=== PATIENT | female | born 1975 | race African-American/Black ===

== ENCOUNTER 2016-06-03 11:37 | Emergency (ER) | payer SELFPAY ==
[2016-06-03 11:46] VITALS: BP 157/89; PULSE 86; TEMP 98.3; BMI 35.5
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
[2016-06-03] MEDS ORDERED: ACETAMINOPHEN 325 MG TABLET (FP) PO ONE (12:11)
[2016-06-03] MEDS ORDERED: ACETAMINOPHEN 325 MG TABLET (FP) ONE (12:18)
--- NOTE | 2016-06-05 08:22 | EKG ---
Test Reason : Blood Pressure : / mmHG Vent. Rate : 082 BPM Atrial Rate : 082 BPM P-R Int : 164 ms QRS Dur : 082 ms QT Int : 390 ms P-R-T Axes : 066 -38 030 degrees QTc Int : 455 ms NORMAL SINUS RHYTHM WITH SINUS ARRHYTHMIA LEFT AXIS DEVIATION ABNORMAL ECG NO PREVIOUS ECGS AVAILABLE Confirmed by LASHONDA WARE, CLAUDE ([id number]) on 06/05/2016 8:22:06 AM Referred By: Confirmed By:CLAUDE GALLEGO MD
== END 2016-06-03 14:39 | disposition home or self-care (01) ==
LOC: JER 11:37
DX: S20.219A Contusion of unspecified front wall of thorax, initial encounter (principal); S00.83XA Contusion of other part of head, initial encounter; Y04.2XXA Assault by strike against or bumped into by another person, initial encounter; Y92.89 Other specified places as the place of occurrence of the external cause; Y07.03 Male partner, perpetrator of maltreatment and neglect
CPT/HCPCS: 71020-TC; 73030-TC-LT; 93005; 93010; 99283-25

== ENCOUNTER 2016-06-12 20:22 | Emergency (ER) | payer SELFPAY ==
[2016-06-12 20:53] VITALS: BP 123/90; PULSE 82; TEMP 97.8; BMI 35.3
[2016-06-12] MEDS ORDERED: KETOROLAC TROMETHAMINE 30 MG/1 ML VIAL IVPUSH ONE (22:10)
[2016-06-12] MEDS ORDERED: KETOROLAC TROMETHAMINE 30 MG/1 ML VIAL ONE (22:25)
[2016-06-12 22:26] LABS: MCH 32.7 pg (25.7-33.7); MCHC 34.1 g/dl (32.0-36.0); MEAN CELL VOLUME 95.8 fl (80-96); RDW 12.5 % (11.6-15.6); WHITE BLOOD COUNT 6.6 K/mm3 (4.0-10.0)
--- NOTE | 2016-06-12 22:32 | PDOC ---
History of Present Illness - General History Source: Patient Exam Limitations: No Limitations <Jp Carrion - Last Filed: 06/13/16 00:43> - General History Source: Patient, Old Records Exam Limitations: No Limitations - History of Present Illness Initial Comments: 06/13/16 00:54 The patient is a 41 year old female, with a significant past medical history of lupus (not currently on any medications), who presents to the emergency department with nonradiating reproducible chest pain since this morning. The patient first noticed this pain after she woke up this morning. She reports that the chest pain is somewhat relieved with massage and rest. The patient is additionally endorsing some mild shortness of breath. The patient denies diaphoresis or palpitations. The patient denies nausea or vomiting. The patient denies a history of blood clots. The patient denies a past or family history of cardiac disease. The patient denies injury or trauma. The patient's boyfriend is at the bedside. Allergies: Shellfish derived. Past Surgical History: Tubal Ligation Social History: Non smoker. Denies alcohol or drug use. <Kanwal Atkinson - Last Filed: 06/13/16 00:55> - General Chief Complaint: Chest Pain Stated Complaint: CHEST PAIN Time Seen by Provider: 06/12/16 21:28 Past History - Past Medical History Other medical history: lupus - Reproductive History (#): 4 Para: 3 Therapeutic (s) & number: No Spontaneous : 0 - Psycho/Social/Smoking Cessation Hx Suicidal Ideation: No Smoking History: Never smoked Have you smoked in the past 12 months: No Hx Alcohol Use: No Drug/Substance Use Hx: No Substance Use Type: None <Jp Carrion - Last Filed: 06/13/16 00:43> <Kanwal Atkinson - Last Filed: 06/13/16 00:55> - Past Medical History Allergies/Adverse Reactions: Allergies Allergy/AdvReac Type Severity Reaction Status Date / Time shellfish derived Allergy Intermediate Swelling Verified 06/12/16 20:48 Home Medications: Ambulatory Orders Acetaminophen [Tylenol] 650 mg PO Q4H PRN #20 tablet 06/13/16 Naproxen [Naprosyn -] 500 mg PO BID PRN #20 tablet 06/13/16 Review of Systems - Review of Systems Able to Perform ROS?: Yes Comments:: 06/12/16 22:36 GENERAL/CONSTITUTIONAL: No fever or chills. No weakness. HEAD, EYES, EARS, NOSE AND THROAT: No change in vision. No ear pain or discharge. No sore throat. CARDIOVASCULAR: +Chest pain, shortness of breath. RESPIRATORY: No cough, wheezing, or hemoptysis. GASTROINTESTINAL: No nausea, vomiting, diarrhea or constipation. GENITOURINARY: No dysuria, frequency, or change in urination. MUSCULOSKELETAL: No joint or muscle swelling or pain. No neck or back pain. SKIN: No rash. NEUROLOGIC: No headache, vertigo, loss of consciousness, or change in strength/ sensation. ENDOCRINE: No increased thirst. No abnormal weight change. HEMATOLOGIC/LYMPHATIC: No anemia, easy bleeding, or history of blood clots. ALLERGIC/IMMUNOLOGIC: No hives or skin allergy. <Kanwal Atkinson - Last Filed: 06/13/16 00:55> *Physical Exam - Vital Signs Last Vital Signs Temp Pulse Resp BP Pulse Ox 97.8 F 82 18 123/90 99 06/12/16 20:51 06/12/16 20:51 06/12/16 20:51 06/12/16 20:51 06/12/16 20:51 <Jp Carrion - Last Filed: 06/13/16 00:43> - Vital Signs Last Vital Signs Temp Pulse Resp BP Pulse Ox 97.8 F 82 18 123/90 99 06/12/16 20:51 06/12/16 20:51 06/12/16 20:51 06/12/16 20:51 06/12/16 20:51 - Physical Exam Comments: 06/12/16 22:38 GENERAL: Awake, alert, and fully oriented, in no acute distress. HEAD: No signs of trauma. EYES: PERRLA, EOMI, sclera anicteric, conjunctiva clear. ENT: Auricles normal inspection, hearing grossly normal, nares patent, oropharynx clear without exudates. Moist mucosa. NECK: Normal ROM, supple, no lymphadenopathy, JVD, or masses. LUNGS: Breath sounds equal, clear to auscultation bilaterally. No wheezes, and no crackles. HEART: Regular rate and rhythm, normal S1 and S2, no murmurs, rubs or gallops. ABDOMEN: Soft, nontender, normoactive bowel sounds. No guarding, no rebound. No masses. MUSCULOSKELETAL: Reproducible left upper chest tenderness to palpation along the pec major. EXTREMITIES: Normal range of motion, no edema. No clubbing or cyanosis. No cords , erythema, or tenderness. NEUROLOGICAL: Cranial nerves II through XII intact. Normal speech, normal gait. SKIN: Warm, dry, normal turgor, no rashes or lesions noted. <Kanwal Atkinson - Last Filed: 06/13/16 00:55> Heart Score/ECG Review - History History: Slightly suspicious - Electrocardiogram EKG: Non specific repolarization disturbance - Age Age: </= 45 - Risk Factors Based on the list above the patient has:: 1-2 risk factors - Troponin Troponin: </= normal limit - Score Heart Score - Total: 2 #1 ECG reviewed & interpreted by me at: 20:40 06/12/16 22:11 NSR 73, LAFB, no std/samia, left axis, QTC 440 msec <Jp Carrion - Last Filed: 06/13/16 00:43> ED Treatment Course - LABORATORY CBC & Chemistry Diagram: 06/12/16 22:15 06/12/16 22:15 - RADIOLOGY Radiology Studies Ordered: Category Date Time Status CHEST X-RAY PORTABLE* [RAD] Stat Radiology 06/12/16 21:49 Ordered <Jp Carrion - Last Filed: 06/13/16 00:43> - LABORATORY CBC & Chemistry Diagram: 06/12/16 22:15 06/12/16 22:15 - Medications Given in the ED: ED Medications Discontinued Medications Generic Name Dose Route Start Last Admin Trade Name Freq PRN Reason Stop Dose Admin Ketorolac Tromethamine 30 mg 06/12/16 22:10 06/12/16 22:31 Toradol Injection - IVPUSH 06/12/16 22:11 30 mg ONCE ONE Administration <Kanwal Atkinson - Last Filed: 06/13/16 00:55> Medical Decision Making - Medical Decision Making 06/12/16 22:12 A portion of this note was documented by scribe services under my direction. I have reviewed the details of the note, within reason, and agree with the documentation with the following case summary and management plan written by me. Patient treated in the ED. Nursing notes are reviewed and incorporated into the medical decision-making. Vital signs reviewed. Peripheral IV access obtained by the nurse, laboratory studies are drawn and sent, reviewed and interpreted by myself. Vital Signs Temp Pulse Resp BP Pulse Ox 97.8 F 82 18 123/90 99 06/12/16 20:51 06/12/16 20:51 06/12/16 20:51 06/12/16 20:51 06/12/16 20:51 41-year-old female with history of lupus presents to the emergency department for reproducible chest pain. Patient was working all night as a supervisor laundry. Woke up this morning and noted that she was having pain reproducible palpation improved with massage and rest. She free reports that it is pleuritic and feels somewhat short of breath secondary to pain. She denies midsternal chest pain. Denies history of blood clots. I have low suspicion your acute coronary syndrome or pulmonary embolism or pericarditis this time. The patient's physical exam appears remarkably like muscle skeletal. We'll send blood work, chest x-ray and trial Toradol. Workup is negative, and the patient reports feeling better, I feel comfortable sending the patient home. 06/13/16 00:37 Chest xray reviewed by me, pending official radiology read. No acute findings. CBC, BMP 06/12/16 22:15 06/12/16 22:15 CMP Sodium 140 mmol/L (136-145) 06/12/16 22:15 Potassium 4.1 mmol/L (3.5-5.1) 06/12/16 22:15 Chloride 105 mmol/L (98-107) 06/12/16 22:15 Carbon Dioxide 27 mmol/L (21-32) 06/12/16 22:15 Anion Gap 8 (8-16) 06/12/16 22:15 BUN 10 mg/dL (7-18) 06/12/16 22:15 Creatinine 0.7 mg/dL (0.55-1.02) 06/12/16 22:15 Creat Clearance w eGFR > 60 (>60) 06/12/16 22:15 Random Glucose 86 mg/dL (74-106) 06/12/16 22:15 Calcium 8.8 mg/dL (8.5-10.1) 06/12/16 22:15 Total Bilirubin 0.4 mg/dL (0.2-1.0) 06/12/16 22:15 AST 15 U/L (15-37) 06/12/16 22:15 ALT 24 U/L (12-78) 06/12/16 22:15 Alkaline Phosphatase 66 U/L (45-117) 06/12/16 22:15 Creatine Kinase 89 IU/L (26-192) 06/12/16 22:15 Troponin I < 0.02 ng/ml (0.00-0.05) 06/12/16 22:15 Total Protein 7.1 g/dl (6.4-8.2) 06/12/16 22:15 Albumin 3.6 g/dl (3.4-5.0) 06/12/16 22:15 Serum , Qual Negative 06/12/16 22:15 The patient reports feeling better with Toradol and Tylenol. Again, I suspicion that this is muscle skeletal. I will give patient follow-up with a plywood stock grader given her left anterior fascicular block and follow-up with a general practitioner. Return precautions given including worsening chest pain. I discussed the physical exam findings, ancillary test results and final diagnoses with the patient. I answered all of the patient's questions. The patient was satisfied with the care received and felt comfortable with the discharge plan and treatment plan. The patient will call their primary care physician within 24 hours to arrange follow-up and will return to the Emergency Department with any new, persistant or worsening symptoms. <Jp Carrion - Last Filed: 06/13/16 00:43> *DC/Admit/Observation/Transfer - Discharge Dispostion Admit: No <Jp Carrion - Last Filed: 06/13/16 00:43> - Attestations Scribe Attestion: 06/12/16 22:36 Documentation prepared by Kanwal Atkinson, acting as medical lab director for Jp Carrion MD. <Kanwal Atkinson - Last Filed: 06/13/16 00:55> Diagnosis at time of Disposition: Atypical chest pain - Discharge Dispostion Disposition: HOME Condition at time of disposition: Improved - Prescriptions Prescriptions: Naproxen [Naprosyn -] 500 mg PO BID PRN #20 tablet PRN Reason: Chest Pain Acetaminophen [Tylenol] 650 mg PO Q4H PRN #20 tablet PRN Reason: Pain - Referrals Referrals: Diann Murillo MD [Staff Physician] - Rudi Tovar MD [Staff Physician] - Por Mehta MD [Staff Physician] - Opal Maya MD [Staff Physician] - Henri Maloney MD [Staff Physician] - Toni Hernandes MD [Staff Physician] - - Patient Instructions Printed Discharge Instructions: DI for Atypical Chest Pain Additional Instructions: You have been given a copy of blood work and EKG. At this time, I suspect that this is likely muscle skeletal. However, given history of lupus, it is important to observe chest pain. If you have uncontrollable chest pain or difficulty breathing, please return to the ER for further evaluation. Otherwise , please make an appointment with the doctor including a plywood stock grader.
[2016-06-12 22:39] LABS: INR 1.01 (0.82-1.09); PROTHROMBIN TIME (PATIENT) 11.1 SEC (9.98-11.88)
[2016-06-12 22:41] LABS: ACTIVATED PTT 32.6 SECONDS (26.9-34.4)
[2016-06-12 22:58] LABS: ALBUMIN 3.6 g/dl (3.4-5.0); ANION GAP 8 (8-16); CALCIUM 8.8 mg/dL (8.5-10.1); CO2 27 mmol/L (21-32); CREATININE 0.7 mg/dL (0.55-1.02); GLUCOSE,RANDOM 86 mg/dL (74-106); SGOT/AST 15 U/L (15-37); SGPT/ALT 24 U/L (12-78)
[2016-06-12 22:59] LABS: PLATELET COUNT 258 K/MM3 (134-434)
[2016-06-12 23:00] LABS: PLATELET COMMENT2 FEW GIANT PLTS; PLATELET ESTIMATE ADEQUATE (NORMAL)
[2016-06-12 23:02] LABS: ALK PHOS 66 U/L (45-117); BILIRUBIN,TOTAL 0.4 mg/dL (0.2-1.0); TOT PROT 7.1 g/dl (6.4-8.2); TROPONIN I < 0.02 ng/ml (0.00-0.05)
[2016-06-12] MEDS ORDERED: ACETAMINOPHEN 1000 MG/100 ML VIAL (NON FORMULARY) IVPB ONE (23:24)
[2016-06-12] MEDS ORDERED: ACETAMINOPHEN INJECTION 100 ML IVPB ONE (23:49)
--- NOTE | 2016-06-13 17:29 | EKG ---
Test Reason : Blood Pressure : / mmHG Vent. Rate : 073 BPM Atrial Rate : 073 BPM P-R Int : 164 ms QRS Dur : 080 ms QT Int : 400 ms P-R-T Axes : 048 -59 025 degrees QTc Int : 440 ms POOR DATA QUALITY, INTERPRETATION MAY BE ADVERSELY AFFECTED NORMAL SINUS RHYTHM LEFT ANTERIOR FASCICULAR BLOCK ABNORMAL ECG WHEN COMPARED WITH ECG OF 03-JUN-2016 11:43, NO SIGNIFICANT CHANGE WAS FOUND Confirmed by SHELLY HURTADO MD ([id number]) on 06/13/2016 5:29:02 PM Referred By: Confirmed By:SHELLY HURTADO MD
== END 2016-06-13 01:10 | disposition home or self-care (01) ==
LOC: JER 20:22
PROC: 3E033NZ Introduction of Analgesics, Hypnotics, Sedatives into Peripheral Vein, Percutaneous Approach (ICD-10-PCS; principal; 2016-06-12)
PROC: 3E0333Z Introduction of Anti-inflammatory into Peripheral Vein, Percutaneous Approach (ICD-10-PCS; 2016-06-12)
DX: R07.89 Other chest pain (principal); M32.9 Systemic lupus erythematosus, unspecified
CPT/HCPCS: 36415; 71010-TC; 80053; 82550; 84484; 84703; 85025; 85610; 85730; 93005; 93010; 99284-25

== ENCOUNTER 2017-06-23 06:30 | Emergency (ER) | payer SELFPAY ==
--- NOTE | 2017-06-23 06:48 | PDOC ---
Heart Score/ECG Review - History History: Slightly suspicious - Electrocardiogram EKG: Normal - Age Age: </= 45 <Sallie Villaseñor - Last Filed: 06/23/17 06:47> - ECG Impressions Normal ECG: Yes Comment:: 06/23/17 06:48 Vent. rate: 62 bpm TN interval: 154 ms QRS duration: 84 ms Normal sinus rhythm <Jessica Fonseca - Last Filed: 06/23/17 06:50>
[2017-06-23 06:49] VITALS: BP 139/88; PULSE 67; TEMP 97.7; BMI 38.4
[2017-06-23] MEDS ORDERED: SODIUM CHLORIDE 1,000 ML IV STA (07:15)
[2017-06-23] MEDS ORDERED: ACETAMINOPHEN 500 MG TABLET (FP) PO ONE (07:16)
--- NOTE | 2017-06-23 07:18 | PDOC ---
Attending Attestation - HPI HPI: 06/23/17 09:47 The patient is a 42 year old female with a significant PMH of lupus who presents to the emergency department with left sided chest pain since earlier this morning. The patient reports an onset of chest pain at 2am this morning while she was laying in bed. She reports a similar episode 2 week ago. She reports associated pain in her arm with movement. The patient denies any shortness of breath, headache and dizziness. She denies any fever, chills, nausea, vomit, diarrhea and constipation. The patient denies any urinary symptoms. The patient denies any other complaints. Documentation prepared by Trace Amor, acting as medical technologist generalist for Manpreet Dos Santos MD. - Physicial Exam PE: 06/23/17 09:47 Vitals: Triage vital signs reviewed General Appearance: No acute distress, well nourished, well developed Head: Atraumatic Eyes: Pupils equal reactive round, extraocular movement intact Neck: Supple; No nuchal rigidity Chest Wall: Nontender Cardiac: Regular rate and rhythm, no murmurs, no rubs, no gallops Lungs: Clear to auscultation bilateral, good air movement bilaterally Abdomen: Soft, nondistended, normal bowel sounds, nontender to palpation Genitourinary: Rectal: Exam deferred Extremities: Full range of motion to all extremities, no cyanosis, clubbing, or edema Skin: Warm and dry, no rashes or lesions, no rash, no petechiae <Trace Amor - Last Filed: 06/23/17 09:47> - Resident Resident Name: Aj Galindo - ED Attending Attestation I have performed the following: I have examined & evaluated the patient, The case was reviewed & discussed with the resident, I agree w/resident's findings & plan, Exceptions are as noted - Medical Decision Making 06/23/17 12:06 42 years old past medical history significant for lupus not being treated. Presents to the ED with atypical positional chest discomfort. Nonexertional nonpleuritic no PE DVT risk factors. Negative by perc criteria. No diaphoresis no vomiting or nausea. Heart score 1. Nonischemic EKG Troponin negative 2. Patient low risk that this discomfort which started last night represents ACS Patient advised follow-up with the primary care provider she was advised return to ED for any severe worsening symptoms or for any concerns Findings, need for follow-up and strict return instructions discussed with patient. 06/23/17 13:14 <Manpreet Dos Santos - Last Filed: 06/23/17 13:15> Discharge Disposition <Trace Amor - Last Filed: 06/23/17 09:47> <Manpreet Dos Santos - Last Filed: 06/23/17 13:15> - Diagnosis Atypical chest pain - Discharge Dispostion Disposition: HOME Condition at time of disposition: Stable - Referrals Referrals: [facility] [Provider Group] Radha Burger MD [Staff Physician] - - Patient Instructions Printed Discharge Instructions: DI for Atypical Chest Pain Additional Instructions: Please return if you have any new, worsening or concerning symptoms. Please follow up with a primary care physician, a referral for a primary care physician has been included in your paperwork. - Post Discharge Activity Work/School Note: Back to Work Heart Score/ECG Review - ECG Impressions Comment:: 06/23/17 08:02 EKG performed at 6:38 AM. Demonstrates normal sinus rhythm 60 bpm. IL interval 154. QRS 84. QTC 4:30. No ST elevations no T-wave inversions Interpreted by me. <Manpreet Dos Santos - Last Filed: 06/23/17 13:15>
--- NOTE | 2017-06-23 07:26 | PDOC ---
History of Present Illness - General Chief Complaint: Chest Pain Stated Complaint: CHEST DISCOMFORT Time Seen by Provider: 06/23/17 06:57 History Source: Patient Exam Limitations: No Limitations - History of Present Illness Initial Comments: 06/23/17 07:19 Patient is a 42F with history of lupus here today complaining of chest pain starting at rest at 2am. Patient states that her chest pain is located to the lateral left side of her sternum with associated parathesias in left arm. Denies fevers, chills, nausea, vomiting. Denies history of blood clots, leg swelling and recent travel. Denies taking any medication. Pain is worsened with arm movement and loading pectoralis major. 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 Patient reports seeing a cosmetic consultant, but was not diagnosed with any condition. Past History - Past Medical History Allergies/Adverse Reactions: Allergies Allergy/AdvReac Type Severity Reaction Status Date / Time shellfish derived Allergy Intermediate Swelling Verified 06/23/17 06:45 Home Medications: Ambulatory Orders NK [No Known Home Medication] 06/23/17 COPD: No Other medical history: lupus - Reproductive History (#): 4 Para: 3 Therapeutic (s) & number: No Spontaneous : 0 - Suicide/Smoking/Psychosocial Hx Smoking History: Never smoked Have you smoked in the past 12 months: No Information on smoking cessation initiated: No Hx Alcohol Use: No Drug/Substance Use Hx: No Substance Use Type: None Review of Systems - Review of Systems Able to Perform ROS?: Yes Comments:: 06/23/17 07:26 GENERAL/CONSTITUTIONAL: No fever or chills. No weakness. HEAD, EYES, EARS, NOSE AND THROAT: No change in vision. No sore throat. CARDIOVASCULAR: Positive for chest pain. Negative for shortness of breath RESPIRATORY: No cough, wheezing, or hemoptysis. GASTROINTESTINAL: No nausea, vomiting, diarrhea or constipation. GENITOURINARY: No dysuria, frequency, or change in urination. MUSCULOSKELETAL: No joint or muscle swelling or pain. No neck or back pain. SKIN: No rash NEUROLOGIC: No headache, vertigo, loss of consciousness, or change in strength/ sensation. HEMATOLOGIC/LYMPHATIC: No anemia, easy bleeding, or history of blood clots. ALLERGIC/IMMUNOLOGIC: No hives or skin allergy. *Physical Exam - Vital Signs Last Vital Signs Temp Pulse Resp BP Pulse Ox 97.7 F 67 18 139/88 99 06/23/17 06:45 06/23/17 06:45 06/23/17 06:45 06/23/17 06:45 06/23/17 06:45 - Physical Exam Comments: 06/23/17 07:27 GENERAL: Awake, alert, and fully oriented, in no acute distress HEAD: No signs of trauma, normocephalic, atraumatic EYES: PERRLA, EOMI, sclera anicteric, conjunctiva clear ENT: Auricles normal inspection, hearing grossly normal, nares patent, oropharynx clear without exudates. Dry mucosa NECK: Normal ROM, supple, no lymphadenopathy, JVD, or masses LUNGS: No distress, speaks full sentences, clear to auscultation bilaterally HEART: Regular rate and rhythm, normal S1 and S2, no murmurs, rubs or gallops, peripheral pulses normal and equal bilaterally. CHEST: Tender to palpation on left pectoralis major, reports pain with loading of chest wall muscles ABDOMEN: Soft, nontender, normoactive bowel sounds. No guarding, no rebound. No masses EXTREMITIES: Normal inspection, Normal range of motion, no edema. No clubbing or cyanosis. NEUROLOGICAL: Cranial nerves II through XII grossly intact. Normal speech, no focal sensorimotor deficits SKIN: Warm, Dry, normal turgor, no rashes or lesions noted. Heart Score/ECG Review - History History: Slightly suspicious - Electrocardiogram EKG: Normal - Age Age: </= 45 - Risk Factors Risk Factors Heart Score: Yes Hx Obesity Based on the list above the patient has:: 1-2 risk factors - Troponin Troponin: </= normal limit - Score Heart Score - Total: 1 ED Treatment Course - LABORATORY CBC & Chemistry Diagram: 06/23/17 08:25 06/23/17 08:25 - RADIOLOGY Radiology Studies Ordered: Category Date Time Status CXRPORT [CHEST X-RAY PORTABLE*] [RAD] Stat Radiology 06/23/17 07:16 Ordered Medical Decision Making - Medical Decision Making 06/23/17 07:28 Patient is 42F with history of lupus here today complaining of chest pain. Vital signs stable. PERC negative. Chest pain reproducible. Patient appears dry. EKG shows normal sinus rhythm with 62bpm. Left anterior fascicular block pattern , stable to prior ekg from [address] elevations/depressions. No significant t wave abnormalities. Normal VT/QRS/QTc intervals. Suspect patient has msk pain, will treat with tylenol and fluids as patient has already taken aspirin at home. Will evaluate further with cbc, cmp, trop, cxr, pt/inr, serum preg. Will discharge after one trop if negative. 06/23/17 09:48 CBC, CMP reassuring. Troponin undetectable. CXR shows no acute cardiopulmonary process. Patient reassessed, states that she feels better. I believe pain is most likely msk in origin, will discharge with instructions to follow up with PCP. All questions answered. Return precautions given. *DC/Admit/Observation/Transfer Diagnosis at time of Disposition: Atypical chest pain - Discharge Dispostion Disposition: HOME Condition at time of disposition: Stable Decision to Admit order: No - Referrals Referrals: [facility] – [place] [facility] [place] [Provider Group] Radha Burger MD [Staff Physician] - - Patient Instructions Printed Discharge Instructions: DI for Atypical Chest Pain Additional Instructions: Please return if you have any new, worsening or concerning symptoms. Please follow up with a primary care physician, a referral for a primary care physician has been included in your paperwork. - Post Discharge Activity Forms/Work/School Notes: Back to Work
[2017-06-23 08:31] LABS: BASO % 1.6 % (0-2.0); EOS % 1.7 % (0-4.5); HEMATOCRIT 37.5 % (32.4-45.2); HEMOGLOBIN 13.1 GM/dL (10.7-15.3); LYMPH % 33.2 % (8-40); MCH 33.6 pg (25.7-33.7); MEAN CELL VOLUME 96.2 fl (80-96); MEAN PLT VOLUME 9.8 fl (7.5-11.1); NEUT % 55.5 % (42.8-82.8); PLATELET COUNT 294 K/MM3 (134-434); WHITE BLOOD COUNT 7.1 K/mm3 (4.0-10.0)
[2017-06-23] MEDS ORDERED: ACETAMINOPHEN 325 MG TABLET (FP) ONE ×2 (08:37→08:42)
[2017-06-23 08:51] LABS: INR 1.01 (0.82-1.09); PROTHROMBIN TIME (PATIENT) 11.4 SEC (9.7-13.0)
[2017-06-23 09:03] LABS: ALBUMIN 3.6 g/dl (3.4-5.0); ANION GAP 7 (8-16); BILIRUBIN,TOTAL 0.6 mg/dL (0.2-1.0); BLOOD UREA NITROGEN 12 mg/dL (7-18); CALCIUM 8.3 mg/dL (8.5-10.1); CHLORIDE 108 mmol/L (98-107); CO2 24 mmol/L (21-32); CREATININE 0.8 mg/dL (0.55-1.02); GLUCOSE,RANDOM 82 mg/dL (74-106); POTASSIUM 4.5 mmol/L (3.5-5.1); SGOT/AST 19 U/L (15-37); SGPT/ALT 20 U/L (12-78); SODIUM 139 mmol/L (136-145); TOT PROT 7.2 g/dl (6.4-8.2)
[2017-06-23 09:06] LABS: ALK PHOS 62 U/L (45-117)
--- NOTE | 2017-06-23 10:51 | EKG ---
Test Reason : Blood Pressure : / mmHG Vent. Rate : 062 BPM Atrial Rate : 062 BPM P-R Int : 154 ms QRS Dur : 084 ms QT Int : 424 ms P-R-T Axes : 044 -46 037 degrees QTc Int : 430 ms NORMAL SINUS RHYTHM LEFT ANTERIOR FASCICULAR BLOCK ABNORMAL ECG WHEN COMPARED WITH ECG OF 12-JUN-2016 20:40, NO SIGNIFICANT CHANGE WAS FOUND Confirmed by CLAUDE GALLEGO MD ([id number]) on 06/23/2017 10:50:44 AM Referred By: Confirmed By:CLAUDE GALLEGO MD
== END 2017-06-23 10:43 | disposition home or self-care (01) ==
LOC: JER 06:30
PROC: 3E0337Z Introduction of Electrolytic and Water Balance Substance into Peripheral Vein, Percutaneous Approach (ICD-10-PCS; principal; 2017-06-23)
DX: R07.89 Other chest pain (principal)
CPT/HCPCS: 36415; 71045-TC-FY; 80053; 82550; 83735; 84484; 84703; 85025; 85610; 93005; 93010; 99283-25; J7030

== ENCOUNTER 2017-06-29 16:06 | Emergency (ER) | payer SELFPAY ==
[2017-06-29 16:11] VITALS: BP 143/83; PULSE 103; TEMP 98.4; BMI 38.4
--- NOTE | 2017-06-29 17:02 | PDOC ---
History of Present Illness - General Chief Complaint: Sore Throat Stated Complaint: SORE THROAT Time Seen by Provider: 06/29/17 16:43 History Source: Patient - History of Present Illness Associated Symptoms: reports: earache, sore throat. denies: cough, fever/chills , muscle aches Past History - Past Medical History Allergies/Adverse Reactions: Allergies Allergy/AdvReac Type Severity Reaction Status Date / Time shellfish derived Allergy Intermediate Swelling Verified 06/29/17 16:11 Home Medications: Ambulatory Orders NK [No Known Home Medication] 06/23/17 COPD: No Other medical history: lupus - Reproductive History (#): 4 Para: 3 Therapeutic (s) & number: No Spontaneous : 0 - Suicide/Smoking/Psychosocial Hx Smoking History: Never smoked Have you smoked in the past 12 months: No Hx Alcohol Use: No Drug/Substance Use Hx: No Substance Use Type: None Review of Systems - Review of Systems Constitutional: No: Chills, Fever HEENTM: Yes: Ear Pain, Throat Pain Respiratory: No: Cough *Physical Exam - Vital Signs Last Vital Signs Temp Pulse Resp BP Pulse Ox 98.4 F 103 H 20 143/83 99 06/29/17 16:09 06/29/17 16:09 06/29/17 16:09 06/29/17 16:09 06/29/17 16:09 - Physical Exam General Appearance: Yes: Appropriately Dressed. No: Apparent Distress HEENT: positive: Normal ENT Inspection, Normal Voice, Pharynx Normal. negative : Scleral Icterus (R), Scleral Icterus (L) Neck: positive: Supple. negative: Lymphadenopathy (R), Lymphadenopathy (L) Respiratory/Chest: negative: Respiratory Distress Integumentary: positive: Dry, Warm Neurologic: positive: Fully Oriented, Alert, Normal Mood/Affect Medical Decision Making - Medical Decision Making 06/29/17 17:01 42-year-old female, history of lupus, not on medication, here with sore throat with bilateral ear pain 3 days. Taken Motrin with no relief. No cough, fever or chills. Patient denies any sick contacts or recent travel. Patient well- appearing and stable with unremarkable exam. Most likely viral. Rule out strep 06/29/17 17:35 Rapid strep neg. Pt discharged to take OTC meds *DC/Admit/Observation/Transfer Diagnosis at time of Disposition: Pharyngitis Qualifiers: Pharyngitis/tonsillitis etiology: unspecified etiology Qualified Code(s): J02.9 - Acute pharyngitis, unspecified - Discharge Dispostion Disposition: HOME Condition at time of disposition: Good - Referrals - Patient Instructions Printed Discharge Instructions: DI for Viral Pharyngitis Additional Instructions: Your rapid strep test was negative in ER. We did send off a confirmatory test, which will take 2-3 days to return. In the meantime, continue 800 mg of Motrin or 650 mg Tylenol every 6 hours - Post Discharge Activity
== END 2017-06-29 17:55 | disposition home or self-care (01) ==
LOC: JERFT 16:06
DX: J02.9 Acute pharyngitis, unspecified (principal)
CPT/HCPCS: 87070; 87430; 99281-25

== ENCOUNTER 2017-12-02 11:50 | Emergency (ER) | payer OTHER ==
[2017-12-02 12:14] VITALS: BP 127/80; PULSE 92; TEMP 98; BMI 33.2
--- NOTE | 2017-12-02 12:45 | PDOC ---
History of Present Illness - General Chief Complaint: Revisit,Wound Recheck Stated Complaint: WOUND,SUTURED ELSEWHERE Time Seen by Provider: 12/02/17 12:39 - History of Present Illness Initial Comments: 42-year-old female presents for evaluation and wound check. Sutures were placed in the left knee and about 10 days after placement she states they became unraveled and started to come out and she remove them herself. She's had no adverse events since removal of the sutures. 12/02/17 12:42 Past History - Past Medical History Allergies/Adverse Reactions: Allergies Allergy/AdvReac Type Severity Reaction Status Date / Time shellfish derived Allergy Intermediate Swelling Verified 12/02/17 12:11 Home Medications: Ambulatory Orders NK [No Known Home Medication] 06/23/17 COPD: No - Reproductive History (#): 4 Para: 3 Therapeutic (s) & number: No Spontaneous : 0 - Suicide/Smoking/Psychosocial Hx Smoking History: Never smoked Have you smoked in the past 12 months: No Hx Alcohol Use: No Drug/Substance Use Hx: No Substance Use Type: None Review of Systems - Review of Systems All Other Systems: Reviewed and Negative *Physical Exam - Vital Signs Last Vital Signs Temp Pulse Resp BP Pulse Ox 98.0 F 92 H 20 127/80 97 12/02/17 12:11 12/02/17 12:11 12/02/17 12:11 12/02/17 12:11 12/02/17 12:11 - Physical Exam Comments: There is a well-healed oblique scar on the anterior aspect of the left knee with normal surrounding skin color and temperature slightly sensitive which is appropriate. Range of motion is full. Wound is well-healed 12/02/17 12:42 *DC/Admit/Observation/Transfer Diagnosis at time of Disposition: Visit for wound check - Discharge Dispostion Disposition: HOME Condition at time of disposition: Stable Decision to Admit order: No - Referrals Referrals: Damari Ramirez MD [Primary Care Provider] - - Patient Instructions Additional Instructions: Return to the emergency room should he have any issues. Please apply some block to the area of the wound when it exposed to sun. He may use vitamin D ointment to cross friction scar massage as discussed. Keep the area clean with soap and water and left open to air. Does not need to be covered. - Post Discharge Activity
== END 2017-12-02 12:53 | disposition home or self-care (01) ==
LOC: JERFT 11:50
DX: Z51.89 Encounter for other specified aftercare (principal)
CPT/HCPCS: 99281-25

== ENCOUNTER 2017-12-28 13:46 | Emergency (ER) | payer SELFPAY ==
[2017-12-28 13:56] VITALS: BP 139/80; PULSE 83; TEMP 97.8; BMI 34.0
--- NOTE | 2017-12-28 14:06 | PDOC ---
History of Present Illness - General Chief Complaint: Pain Stated Complaint: TOE PAIN Time Seen by Provider: 12/28/17 13:58 History Source: Patient Exam Limitations: No Limitations - History of Present Illness Initial Comments: CHIEF COMPLAINT: 42 y/o female with left big toe pain. HISTORY OF PRESENT ILLNESS: The patient had her toenails done at a local nail salon. She said yesterday she noticed the cuticle of her left big toe was swollen and painful. She has been soaking it but it still hurts. She denies fever, streaking. She has no history of diabetes. Vital signs on arrival are within normal limits. REVIEW OF SYSTEMS: GENERAL/CONSTITUTIONAL: No fever/chills. No weakness. No weight change. MUSCULOSKELETAL: +left cuticle swelling. . No neck or back pain. SKIN: No rash or easy bruising. NEUROLOGIC: No headache, vertigo, loss of consciousness, or loss of sensation. PHYSICAL EXAM: VITAL_SIGNS: within normal limits GENERAL_APPEARANCE: alert, cooperative, no obvious discomfort. MENTAL_STATUS: speech clear, oriented X 3, responds appropriately to questions. NEURO: motor intact and sensory intact in injured extremity. EXTREMITIES: good pulse in injured extremity. skin to medial border of left cuticle of big toe is open with scabbed over purulent discharge that is TTP. Minimal surrounding erythema. No streaking. SKIN: warm, dry, good color. Past History - Past Medical History Allergies/Adverse Reactions: Allergies Allergy/AdvReac Type Severity Reaction Status Date / Time shellfish derived Allergy Intermediate Swelling Verified 12/28/17 13:51 Home Medications: Ambulatory Orders NK [No Known Home Medication] 06/23/17 COPD: No Other medical history: lupus - Reproductive History (#): 4 Para: 3 Therapeutic (s) & number: No Spontaneous : 0 - Suicide/Smoking/Psychosocial Hx Smoking History: Never smoked Have you smoked in the past 12 months: No Hx Alcohol Use: No Drug/Substance Use Hx: No Substance Use Type: None *Physical Exam - Vital Signs Last Vital Signs Temp Pulse Resp BP Pulse Ox 97.8 F 83 18 139/80 100 12/28/17 13:48 12/28/17 13:48 12/28/17 13:48 12/28/17 13:48 12/28/17 13:48 Medical Decision Making - Medical Decision Making A/P: 42 y/o with infected cuticle. Instructed her to continue with hot soaks and apply either topical neosporin or bacitracin. Informed her that this will resolve on it's own if she soaks it, keeps it clean and applies topical antibiotic ointment. The patient verbalizes understanding of all instructions, has no further questions and is awaiting discharge. *DC/Admit/Observation/Transfer Diagnosis at time of Disposition: Infected cuticle - Discharge Dispostion Disposition: HOME Condition at time of disposition: Good - Referrals Referrals: Damari Ramirez MD [Primary Care Provider] - - Patient Instructions Printed Discharge Instructions: DI for Wound Infection Additional Instructions: Discharge Instructions: -You have a cuticle infection of your toe -Soak your foot in hot water multiple times per day -Apply topical Bacitracin or Neosporin -Try to keep the area covered loosely so you don't hit it into anything - Post Discharge Activity
== END 2017-12-28 14:20 | disposition home or self-care (01) ==
LOC: JER 13:46
DX: L08.89 Other specified local infections of the skin and subcutaneous tissue (principal)
CPT/HCPCS: 99281-25

== ENCOUNTER 2018-05-03 09:46 | Emergency (ER) | payer OTHER ==
[2018-05-03 09:52] VITALS: BP 121/80; PULSE 67; TEMP 97; BMI 34.0
[2018-05-03] MEDS ORDERED: METOCLOPRAMIDE HCL 10 MG TABLET (FP) PO ONE ×2 (10:15→10:25)
[2018-05-03] MEDS ORDERED: ACETAMINOPHEN 500 MG TABLET (FP) PO ONE (10:15)
[2018-05-03] MEDS ORDERED: ACETAMINOPHEN 325 MG TABLET (FP) ONE (10:25)
--- NOTE | 2018-05-03 10:33 | PDOC ---
Attending Attestation - Resident Resident Name: Aj Galindo - ED Attending Attestation I have performed the following: I have examined & evaluated the patient, The case was reviewed & discussed with the resident, I agree w/resident's findings & plan, Exceptions are as noted - HPI HPI: 05/03/18 10:22 43 year old female patient with past medical history of lupus (not on medications) presents with 1 month of headache. Pt endorses having a pressure like headache that starts in the front and radiates to the back. Associated with some mild photophobia, but denies neck stiffness. No fevers, chills, sick contacts, recent travels. Stated that the headache resolves with motrin and excedrin, however, it returns. Never had a headache history. Pt's sister is currently with similar symptoms, but she lives in [place] and not with the patient. No known family headache history other than sister. - Physicial Exam PE: 05/03/18 10:33 GENERAL: Awake, alert, and fully oriented, in no acute distress HEAD: No signs of trauma EYES: EOMI, sclera anicteric, conjunctiva clear ENT: Auricles normal inspection, hearing grossly normal, nares patent, Moist mucosa NECK: Normal ROM, supple, LUNGS: Breath sounds equal, clear to auscultation bilaterally. No wheezes, and no crackles HEART: Regular rate and rhythm, normal S1 and S2, no murmurs, rubs or gallops ABDOMEN: Soft, nontender, No guarding, no rebound. No masses EXTREMITIES: Normal range of motion, no edema. No clubbing or cyanosis. No cords, erythema, or tenderness NEUROLOGICAL: Cranial nerves II through XII intact. Normal speech, normal gait. Full strength upper and lower extremities. SKIN: Warm, Dry, normal turgor, no rashes or lesions noted. - Medical Decision Making 05/03/18 10:33 Vital Signs Temp Pulse Resp BP Pulse Ox 97 F L 67 18 121/80 99 05/03/18 09:49 05/03/18 09:49 05/03/18 09:49 05/03/18 09:49 05/03/18 09:49 The headache may potentially be a migranous headache, however, the headache is persistent and going for about a month. I am not concerned for SAH or meningitis. However, should obtain head CT to r/o intracranial masses. Regardless, pt will need an outpatient neurology follow up. Trial migraine medications. 05/03/18 11:[address] negative. Will have patient follow up with neuro
--- NOTE | 2018-05-03 10:37 | PDOC ---
History of Present Illness - General Chief Complaint: Headache Stated Complaint: MIGRAINES Time Seen by Provider: 05/03/18 10:05 History Source: Patient Exam Limitations: No Limitations - History of Present Illness Initial Comments: 05/03/18 10:32 Patient is a 43F with history of lupus, currently not on any medications, here today complaining of a headache for the past month. Patient describes a daily headache worse in the frontal aspect of her head with radiation to the back of her neck. Denies arm/leg weakness, facial droop, slurred speech. Denies worse in the morning. Pain is relieved with excedrin and tylenol, but comes back later. Patient has not seen neurologist yet for her symptoms. Denies fevers, chills, nausea, vomiting. Denies chest pain and shortness of breath. Currently menstruating. Past History - Past Medical History Allergies/Adverse Reactions: Allergies Allergy/AdvReac Type Severity Reaction Status Date / Time shellfish derived Allergy Intermediate Swelling Verified 05/03/18 09:52 Home Medications: Ambulatory Orders NK [No Known Home Medication] 06/23/17 COPD: No - Reproductive History (#): 4 Para: 3 Therapeutic (s) & number: No Spontaneous : 0 - Suicide/Smoking/Psychosocial Hx Smoking History: Never smoked Have you smoked in the past 12 months: No Hx Alcohol Use: No Drug/Substance Use Hx: No Substance Use Type: None Review of Systems - Review of Systems Able to Perform ROS?: Yes Comments:: 05/03/18 10:34 GENERAL/CONSTITUTIONAL: No fever or chills. No weakness. HEAD, EYES, EARS, NOSE AND THROAT: No change in vision. No ear pain or discharge. No sore throat. CARDIOVASCULAR: No chest pain or shortness of breath RESPIRATORY: No cough, wheezing, or hemoptysis. GASTROINTESTINAL: No nausea, vomiting, diarrhea or constipation. GENITOURINARY: No dysuria, frequency, or change in urination. MUSCULOSKELETAL: No joint or muscle swelling or pain. No neck or back pain. SKIN: No rash NEUROLOGIC: +headache, no vertigo, loss of consciousness, or change in strength/ sensation. ALLERGIC/IMMUNOLOGIC: No hives or skin allergy. *Physical Exam - Vital Signs Last Vital Signs Temp Pulse Resp BP Pulse Ox 97 F L 67 18 121/80 99 05/03/18 09:49 05/03/18 09:49 05/03/18 09:49 05/03/18 09:49 05/03/18 09:49 - Physical Exam Comments: 05/03/18 10:34 GENERAL: Awake, alert, and fully oriented, in no acute distress HEAD: No signs of trauma, normocephalic, atraumatic EYES: PERRLA, EOMI, sclera anicteric, conjunctiva clear ENT: Auricles normal inspection, hearing grossly normal, nares patent, oropharynx clear without exudates. Moist mucosa NECK: Normal ROM, supple, no lymphadenopathy, JVD, or masses LUNGS: No distress, speaks full sentences, clear to auscultation bilaterally HEART: Regular rate and rhythm, normal S1 and S2, no murmurs, rubs or gallops, peripheral pulses normal and equal bilaterally. ABDOMEN: Soft, nontender, normoactive bowel sounds. No guarding, no rebound. No masses EXTREMITIES: Normal inspection, Normal range of motion, no edema. No clubbing or cyanosis. NEUROLOGICAL: Cranial nerves II through XII grossly intact. Normal speech, normal gait, no focal sensorimotor deficits SKIN: Warm, Dry, normal turgor, no rashes or lesions noted. Moderate Sedation - Procedure Monitoring Vital Signs: Procedure Monitoring Vital Signs Temperature 97 F L 05/03/18 09:49 Pulse Rate 67 05/03/18 09:49 Respiratory Rate 18 05/03/18 09:49 Blood Pressure 121/80 05/03/18 09:49 O2 Sat by Pulse Oximetry (%) 99 05/03/18 09:49 ED Treatment Course - RADIOLOGY Radiology Studies Ordered: Category Date Time Status HEAD CT WITHOUT CONTRAST [CT] Stat CT Scan 05/03/18 10:15 Ordered Medical Decision Making - Medical Decision Making 05/03/18 10:35 Patient is a 43F with history of lupus here today with headache for one month. Vitals normal and stable. Suspect tension or migraine headache, will do CT to evaluate for mass. Give history and physical, do not suspect head bleed. Will treat with reglan and tylenol. Patient instructed to keep headache diary and follow up with neuro. Pending preg and ct. 05/03/18 11:[address] negative. Will discharge with outpatient follow up. *DC/Admit/Observation/Transfer Diagnosis at time of Disposition: Headache - Discharge Dispostion Disposition: HOME Condition at time of disposition: Good Decision to Admit order: No - Referrals Referrals: Obed Gaviria MD [Staff Physician] - - Patient Instructions Printed Discharge Instructions: DI for Headache Additional Instructions: Please follow up with neurology this week. Please keep a diary of your headaches for your upcoming appointment. Please return if you have any new, worsening or concerning symptoms, especially fever, increasing pain, and weakness. - Post Discharge Activity
== END 2018-05-03 11:56 | disposition home or self-care (01) ==
LOC: JER 09:46
DX: R51 Headache (principal); Z87.39 Personal history of other diseases of the musculoskeletal system and connective tissue
CPT/HCPCS: 70450-TC; 84703; 99281-25

== ENCOUNTER 2018-05-16 19:00 | Emergency (ER) | payer OTHER ==
[2018-05-16 19:32] VITALS: BP 136/95; PULSE 89; TEMP 98.2; BMI 37.1
[2018-05-16] MEDS ORDERED: LIDOCAINE 5% TOPICAL PATCH TP ONE (20:09)
[2018-05-16] MEDS ORDERED: KETOROLAC TROMETHAMINE 60 MG/2 ML VIAL IM ONE (20:09)
[2018-05-16] MEDS ORDERED: KETOROLAC TROMETHAMINE 60 MG/2 ML VIAL ONE (20:10)
[2018-05-16] MEDS ORDERED: LIDOCAINE 5% TOPICAL PATCH ONE (20:10)
--- NOTE | 2018-05-16 21:29 | PDOC ---
History of Present Illness - General Chief Complaint: Back Pain Stated Complaint: LOWER BACK PAIN Time Seen by Provider: 05/16/18 19:45 Past History - Past Medical History Allergies/Adverse Reactions: Allergies Allergy/AdvReac Type Severity Reaction Status Date / Time shellfish derived Allergy Intermediate Swelling Verified 05/16/18 19:32 Home Medications: Ambulatory Orders Ibuprofen 800 mg PO TID #30 tablet 05/16/18 Oxycodone HCl/Acetaminophen [Percocet 5-325 mg Tablet] 1 tab PO Q6H #15 tablet MDD 4 05/16/18 COPD: No - Reproductive History (#): 4 Para: 3 Therapeutic (s) & number: No Spontaneous : 0 - Suicide/Smoking/Psychosocial Hx Smoking History: Never smoked Have you smoked in the past 12 months: No Information on smoking cessation initiated: No Hx Alcohol Use: No Drug/Substance Use Hx: No Substance Use Type: None *Physical Exam - Vital Signs Last Vital Signs Temp Pulse Resp BP Pulse Ox 98.2 F 89 16 136/95 100 05/16/18 19:31 05/16/18 19:31 05/16/18 19:31 05/16/18 19:31 05/16/18 19:31 ED Treatment Course - ADDITIONAL ORDERS Additional order review: Laboratory Results 05/16/18 19:42 Urine HCG, Qual Negative - RADIOLOGY Radiology Studies Ordered: Category Date Time Status SPINE-LUMBAR SACRAL [RAD] Stat Radiology 05/16/18 20:09 Taken - Medications Given in the ED: ED Medications Discontinued Medications Generic Name Dose Route Start Last Admin Trade Name Freq PRN Reason Stop Dose Admin Ketorolac Tromethamine 60 mg 05/16/18 20:09 05/16/18 20:16 Toradol Injection - IM 05/16/18 20:10 60 mg ONCE ONE Administration Lidocaine 1 patch 05/16/18 20:09 05/16/18 20:16 Lidoderm Patch - TP 05/16/18 20:10 1 patch ONCE ONE Administration *DC/Admit/Observation/Transfer Diagnosis at time of Disposition: Fractured coccyx Qualifiers: Encounter type: initial encounter Fracture type: closed Qualified Code(s): S32.2XXA - Fracture of coccyx, initial encounter for closed fracture - Discharge Dispostion Disposition: HOME Condition at time of disposition: Stable Decision to Admit order: No - Referrals Referrals: Obed Manuel MD [Staff Physician] - - Patient Instructions Printed Discharge Instructions: DI for Coccyx Fracture Additional Instructions: You broke your tail bone, or coccyx Take the percocet every 6 hours for pain. Do not drink or drive after taking this medication as it may make you sleepy Also take ibuprofen every 6 hours not to exceed 3,000mg a day Purchase a donut pillow so you can sit Follow up with orthopedics this week, a referral has been provided Return to the ED for worsening pain, numbness and tingling down the legs, loss of bladder/bowel function or if you have any changes in your symptoms - Post Discharge Activity Forms/Work/School Notes: Back to Work
[2018-05-16] MEDS ORDERED: LIDOCAINE PATCH REMOVAL MC SCH (22:00)
== END 2018-05-16 22:14 | disposition home or self-care (01) ==
LOC: JERFT 19:00
PROC: 3E0233Z Introduction of Anti-inflammatory into Muscle, Percutaneous Approach (ICD-10-PCS; principal; 2018-05-16)
DX: S32.2XXA Fracture of coccyx, initial encounter for closed fracture (principal); X58.XXXA Exposure to other specified factors, initial encounter; Y93.9 Activity, unspecified; Y92.89 Other specified places as the place of occurrence of the external cause; Y99.0 Civilian activity done for income or pay
CPT/HCPCS: 72100-TC-FY; 84703; 99281-25

== ENCOUNTER 2018-09-19 10:41 | Emergency (ER) | payer OTHER | END 2018-09-19 12:28 | disposition home or self-care (01) | LOC: JER 10:41 ==